=== PATIENT | female | born 2000 | race Two or more races ===

== ENCOUNTER → 2024-05-03 | Outpatient (CLI) | payer OTHER, SELFPAY ==
--- NOTE | 2024-05-03 13:00 | XR_ITS ---
Examination: Pelvic ultrasound, transabdominal, complete Technique: Transabdominal ultrasound of the pelvis performed using grayscale imaging Date and time of exam: May 03, 2024 1525 hrs. Indications: Pelvic pain and cramping beginning 2 months ago Findings: Uterus 8.6 cm and 31.4 cm No uterine mass or intrauterine gestation Right ovary 4.3 cm arterial flow, cystic solid mass 2.6 x 2.7 x 3.0 cm no free fluid Left ovary 5.2 cm arterial flow Cyst with internal echoes 4.4 cm consider hemorrhagic cyst Impression: No uterine mass or intrauterine gestation Right ovarian cystic solid mass 2.6 x 2.7 x 3.0 cm 24 at, differential would include abscess, complex cyst, ectopic in the appropriate clinical setting Left ovarian hemorrhagic cyst 4.4 cm
== END | disposition home or self-care (01) ==
LOC: CDIM 13:21
PROVIDERS: PCP Family Medicine; Referring Provider Obstetrics & Gynecology; Visit Provider Obstetrics & Gynecology
DX: R19.09 Other intra-abdominal and pelvic swelling, mass and lump (principal); N83.292 Other ovarian cyst, left side
CPT/HCPCS: 76856